=== PATIENT | female | born 1950 | race Caucasian/White ===

== ENCOUNTER 2016-06-14 13:20 | Emergency (ER) | payer OTHER ==
[2016-06-14 13:47] LABS: URINE APPEARANCE CLOUDY; URINE BILIRUBIN NEGATIVE (NEGATIVE); URINE BLOOD NEGATIVE (NEGATIVE); URINE COLOR YELLOW; URINE KETONE 15 mg/dL (NEGATIVE); URINE LEUKOCYTE ESTERASE LARGE (NEGATIVE); URINE NITRITE NEGATIVE (NEGATIVE); URINE PROTEIN TRACE (NEGATIVE); URINE UROBILINOGEN 0.2 E.U./dL (0.20 - 1.00)
[2016-06-14 14:00] LABS: URINE AMORPHOUS SEDIMENT 1+; URINE BACTERIA FEW; URINE MUCUS LIGHT; URINE RBC NONE SEEN (NONE SEEN); URINE YEAST FEW
--- NOTE | 2016-06-14 14:59 | Emergency Department Record ---
History of Present Illness - General Chief complaint: Female Urogenital Problem Stated complaint: ABD PAIN Time Seen by Provider: 06/14/16 14:52 Source: Patient, RN notes reviewed Mode of Arrival: EMS - History of Present Illness Initial comments: abdominal pain intermittent and she states she is having babies and she has dementia and has been stating she is having babies for 8 weeks. Dementia for one year. No vomiting , No diarrhea, Son is working to set up hospise care but everything is not in place yet and he has power of tax attorney. I recommended labs and xrays and he said no he didn't want that. Onset/Timin -: Days(s) Location: Perineum, Suprapubic Severity: Moderate Quality: Cramping Consistency: Intermittent Improves with: None Worsens with: None Associated Symptoms: Abdominal pain - Related Data Previous Rx's Medication Instructions Recorded Fluconazole [Diflucan] 100 mg PO DAILY #3 tablet 06/14/16 Allergies Allergy/AdvReac Type Severity Reaction Status Date / Time brompheniramine maleate Allergy ANAPHYLAXIS Verified 06/14/16 13:54 [From Drixoral] dexbrompheniramine maleate Allergy ANAPHYLAXIS Verified 06/14/16 13:54 [From Drixoral] pseudoephedrine HCl Allergy ANAPHYLAXIS Verified 06/14/16 13:54 [From Drixoral] pseudoephedrine sulfate Allergy ANAPHYLAXIS Verified 06/14/16 13:54 [From Drixoral] Travel Screening - Travel/Exposure Within Last 30 Days Have you traveled within the last 30 days?: No - Travel/Exposure Within Last Year Have you traveled outside the [place] in the last year?: No - Additonal Travel Details Have you been exposed to anyone with a communicable illness?: No - Travel Symptoms Symptom Screening: None Review of Systems Reviewed: No additional complaints except as noted below Constitutional: Reports: As per HPI. Denies: Chills, Fever, Malaise, Night sweats, Weakness, Weight change Eyes: Reports: As per HPI. Denies: Eye discharge, Eye pain, Photophobia, Vision change ENT: Reports: As per HPI. Denies: Congestion, Dental pain, Ear pain, Epistaxis , Hearing loss, Throat pain Respiratory: Reports: As per HPI. Denies: Cough, Dyspnea, Hemoptysis, Stridor, Wheezes Cardiovascular: Reports: As per HPI. Denies: Arrhythmia, Chest pain, Dyspnea on exertion, Edema, Murmurs, Orthopnea, Palpitations, Paroxysmal nocturnal dyspnea, Rheumatic Fever, Syncope Endocrine: Reports: As per HPI. Denies: Fatigue, Heat or cold intolerance, Polydipsia, Polyuria Gastrointestinal: Reports: As per HPI, Abdominal pain. Denies: Constipation, Diarrhea, Hematemesis, Hematochezia, Melena, Nausea, Vomiting Genitourinary: Reports: As per HPI. Denies: Abnormal menses, Discharge, Dyspareunia, Dysuria, Frequency, Hematuria, Incontinence, Retention, Urgency Musculoskeletal: Reports: As per HPI. Denies: Arthralgia, Back pain, Gout, Joint swelling, Myalgia, Neck pain Skin: Reports: As per HPI. Denies: Bruising, Change in color, Change in hair/ nails, Lesions, Pruritus, Rash Neurological: Reports: As per HPI. Denies: Abnormal gait, Confusion, Headache, Numbness, Paresthesias, Seizure, Tingling, Tremors, Vertigo, Weakness Psychiatric: Reports: As per HPI. Denies: Anxiety, Auditory hallucinations, Depression, Homicidal thoughts, Suicidal thoughts, Visual hallucinations Hematological/Lymphatic: Reports: As per HPI. Denies: Anemia, Blood Clots, Easy bleeding, Easy bruising, Swollen glands Past Medical History - SOCIAL HISTORY Smoking Status: Never smoker Alcohol Use: None Drug Use: None - RESPIRATORY Hx Respiratory Disorders: No - CARDIOVASCULAR Hx Cardio Disorders: Yes Hx CHF: Yes Hx Irregular Heartbeat: Yes (A Flutter/A fib) - NEURO Hx Neuro Disorders: Yes Hx Dementia: Yes Hx Seizures: Yes - GI Hx GI Disorders: Yes Hx Reflux: Yes - Hx Genitourinary Disorders: No - ENDOCRINE Hx Endocrine Disorders: Yes Hx Diabetes: Yes - MUSCULOSKELETAL Hx Musculoskeletal Disorders: No - PSYCH Hx Psych Problems: No - HEMATOLOGY/ONCOLOGY Hx Hematology/Oncology Disorders: Yes Hx Cancer: Yes (endometrium) Family Medical History Any Significant Family History?: No Physical Exam - General General Appearance: Alert, Oriented x3, Cooperative, No acute distress - Head Head exam: Normal inspection - Eye Eye exam: Normal appearance, PERRL Pupils: Normal accommodation - ENT ENT exam: Normal exam, Mucous membranes moist, Normal external ear exam, Normal orophraynx, TM's normal bilaterally Ear exam: Normal external inspection. negative: External canal tenderness Nasal Exam: Normal inspection. negative: Discharge, Sinus tenderness Mouth exam: Normal external inspection, Tongue normal Teeth exam: Normal inspection. negative: Dental caries Throat exam: Normal inspection. negative: Tonsillar erythema, Tonsillar exudate - Neck Neck exam: Normal inspection, Full ROM. negative: Tenderness - Respiratory Respiratory exam: Normal lung sounds bilaterally. negative: Respiratory distress - Cardiovascular Cardiovascular Exam: Regular rate, Normal rhythm, Normal heart sounds - GI/Abdominal GI/Abdominal exam: Soft, Normal bowel sounds. negative: Tenderness - Rectal Rectal exam: Other (hard stool and no blood and she has candiadiasis of [place] area) - exam: Deferred - Extremities Extremities exam: Normal inspection, Full ROM, Normal capillary refill. negative: Tenderness - Back Back exam: Reports: Normal inspection, Full ROM. Denies: Muscle spasm, Rash noted, Tenderness - Neurological Neurological exam: Alert, Normal gait, Oriented X3, Reflexes normal - Psychiatric Psychiatric exam: Normal affect, Normal mood - Skin Skin exam: Dry, Intact, Normal color, Warm Course Vital Signs 06/14/16 13:54 Temperature 98.6 F Pulse Rate 124 H Respiratory 20 Rate Blood Pressure 154/91 Pulse Ox 98 rectal exam with hard stool and hemocult neg Medical Decision Making - Lab Data Lab Results 06/14/16 Range/Units 13:40 Urine Color Yellow Urine Appearance Cloudy Urine pH 8.5 (5.0-8.0) Ur Specific [place] 1.010 (1.002-1.030) Urine Protein Trace H (NEGATIVE) Urine Glucose (UA) 500 mg/dl H (NEGATIVE) Urine Ketones 15 mg/dl H (NEGATIVE) Urine Blood Negative (NEGATIVE) Urine Nitrite Negative (NEGATIVE) Urine Bilirubin Negative (NEGATIVE) Urine Urobilinogen 0.2 (0.20 - 1.00) E.U./dL Ur Leukocyte Esterase Large H (NEGATIVE) Urine RBC None seen (NONE SEEN) Urine WBC 6 - 10 (0-2/hpf) U Non-Squamous Epi Cells 3 - 6 /hpf Amorphous Sediment 1+ Urine Bacteria Few Urine Mucus Light Urine Yeast Few Disposition Clinical Impression: Candidiasis Constipation Qualifiers: Constipation type: chronic idiopathic constipation Qualified Code(s): K59.04 - Chronic idiopathic constipation Diabetes Qualifiers: Diabetes mellitus type: type 2 Diabetes mellitus complication status: with unspecified complications Disposition: Home, Self-Care Instructions: Constipation (ED) Additional Instructions: drink more water dulcolax supp once a day follow up with a family in [address] miranda to set up hospise care Prescriptions: Fluconazole [Diflucan] 100 mg PO DAILY #3 tablet Forms: Patient Portal Access Time of Disposition: 15:52
[2016-06-14] MEDS: FLUCONAZOLE 100 MG TABLET PO ONE (15:34)
[2016-06-14] MEDS: BISACODYL 10 MG SUPP RC ONE (15:34)
== END 2016-06-14 16:52 | disposition home or self-care (01) ==
LOC: ER 13:20
DX: B37.3 Candidiasis of vulva and vagina (principal); K59.04 Chronic idiopathic constipation; E11.9 Type 2 diabetes mellitus without complications; R82.99 Other abnormal findings in urine; R10.2 Pelvic and perineal pain; F03.90 Unspecified dementia, unspecified severity, without behavioral disturbance, psychotic disturbance, mood disturbance, and anxiety
CPT/HCPCS: 36416; 81001; 82272; 82948; 87086; 99283